=== PATIENT | male | born 1930 | race Caucasian/White ===

== ENCOUNTER 2018-01-06 23:36 | Inpatient (IN) ==
[2018-01-07] MEDS ORDERED: methylPREDNISolone SOD SUC 125 MG/2 ML VIAL IV STA (00:27)
[2018-01-07] MEDS ORDERED: PIPERACILLIN/TAZOBACTAM 3,375 MG in SODIUM CHLORIDE 0.9% 100 ML IV STA (00:27)
[2018-01-07] MEDS ORDERED: ALBUTEROL/IPRATROPIUM 3 ML NEB RESP TX STA (00:27)
[2018-01-07 01:09] LABS: ABG Base Excess 0.4 MMOL/L (-2.5-2.5); ABG HCO3 25.3 MMOL/L (20-26); ABG Oxygen Saturation 97.4 % (95-100); ABG PCO2 41.8 MM HG (35-48); ABG PO2 103.8 MM HG (80-95); ABG TCO2 26.6 MMOL/L (23-27); Allen Test Positive
[2018-01-07 01:36] LABS: Basophils % 0.2 % (0.0-0.8); Eosinophils % 0.4 % (0.00-10.9); Hemoglobin 14.2 GM/DL (14.0-18.0); Immature Granulocytes Absolute 0.08 #; Lymphocytes # 1.1 10*3/uL (1.4-4.0); Lymphocytes % 13.7 % (21.2-54.2); Mean Corpuscular HGB Conc 32.3 GM/DL (32-36); Mean Corpuscular Hemoglobin 30 PG (27-34); Mean Corpuscular Volume 92.2 FL (87-102); Mean Platelet Volume 9.9 FL (9.6-12.0); Monocytes # 0.8 10*3/uL (0.11-0.8); Monocytes % 9.3 % (1.7-12.7); Neutrophils # 6.2 10*3/uL (1.4-7.4); Neutrophils % 75.4 % (38.7-73.9); Platelet Count 147 T/CUMM (130-400); Red Blood Count 4.77 MC/CUMM (3.8-5.5); Red Cell Distribution Width 14.2 % (9.3-17.3); White Blood Count 8.2 T/CUMM (4-12)
[2018-01-07 01:51] LABS: PT Patient Result 10.9 SECS
[2018-01-07 02:00] LABS: Albumin 3.3 G/DL (3.4-5.0); Bilirubin,Total 0.5 MG/DL (0.2-1.0); Calcium 8.6 MG/DL (8.5-10.1); Osmolality,Calculated 289.1 MOS/KG (273-304); Potassium 4.7 MMOL/L (3.5-5.1); Troponin I Only 0.031 NG/ML (0.00-0.045)
[2018-01-07] MEDS ORDERED: methylPREDNISolone SOD SUC 125 MG/2 ML VIAL ONE (02:44)
[2018-01-07] MEDS ORDERED: PIPERACILLIN/TAZOBACTAM 3,375 MG VIAL IV ONE (02:44)
[2018-01-07] MEDS ORDERED: SODIUM CHLORIDE 0.9% 100 ML IV ONE (02:45)
[2018-01-07 03:02] LABS: Lactic Acid 1.8 MMOL/L (0.4-2.0)
[2018-01-07] MEDS ORDERED: ALBUTEROL/IPRATROPIUM 3 ML NEB RESP TX PRN (03:49)
[2018-01-07] MEDS ORDERED: ONDANSETRON 4 MG/2 ML VIAL IV PRN (03:49)
[2018-01-07] MEDS ORDERED: MORPHINE 2 MG/1 ML SYRINGE IV PRN (03:49)
[2018-01-07] MEDS: ENOXAPARIN 40 MG/0.4 ML SYRINGE SUBCUT SCH ×2 (04:50→09:19)
[2018-01-07 06:48] LABS: Apearance,Urine Slightly Hazy (Clear); Glucose,Urine (UA) Negative (Negative); Ketones,Urine Negative (Negative); Nitrite,Urine Negative (Negative); Protein,Urine 100 MG/DL; Urine Color Yellow (Yellow)
[2018-01-07 06:49] LABS: Bacteria,Urine Occasional /HPF (Few); Bilirubin,Urine Negative (Negative); Blood, Urine Negative (Negative); Hyaline Casts,Urine 10 /LPF (0-3); Mucus,Urine Occasional /LPF (Occasional); RBC,Urine 1 /HPF (0-4); Urine Urobilinogen < 2.0 EU/DL (0.2-1.0); WBC,Urine 1 /HPF (0-6)
[2018-01-07] MEDS: SODIUM CHLORIDE 0.45% 1,000 ML IV SCH (07:07)
[2018-01-07] MEDS ORDERED: ENOXAPARIN 40 MG/0.4 ML SYRINGE ONE (09:11)
[2018-01-07] MEDS ORDERED: CLINDAMYCIN INJ 50 ML IV ONE (09:11)
[2018-01-07] MEDS: ALBUTEROL/IPRATROPIUM 3 ML NEB RESP TX SCH ×3 (09:15→19:44)
[2018-01-07] MEDS: CLINDAMYCIN INJ 600 MG in PREMIX 1 EACH IV SCH ×2 (09:15→16:26)
[2018-01-07] MEDS ORDERED: PANTOPRAZOLE 40 MG VIAL IV ONE (09:44)
[2018-01-07] MEDS: PANTOPRAZOLE 40 MG VIAL IV SCH (09:50)
[2018-01-08] MEDS: ALBUTEROL/IPRATROPIUM 3 ML NEB RESP TX SCH ×4 (00:21→19:15)
[2018-01-08] MEDS: CLINDAMYCIN INJ 600 MG in PREMIX 1 EACH IV SCH ×3 (00:38→16:40)
[2018-01-08] MEDS: SODIUM CHLORIDE 0.45% 1,000 ML IV SCH ×4 (00:39→21:04)
[2018-01-08] MEDS: PANTOPRAZOLE 40 MG VIAL IV SCH (09:55)
[2018-01-08 16:31] LABS: Troponin I Only < 0.015 NG/ML (0.00-0.045)
[2018-01-08] MEDS: MEMANTINE 5 MG TABLET PO SCH ×2 (16:40→20:21)
[2018-01-08] MEDS: CARBIDOPA/LEVODOPA 25-100 MG TABLET PO SCH ×2 (16:40→20:21)
[2018-01-09] MEDS: CLINDAMYCIN INJ 600 MG in PREMIX 1 EACH IV SCH ×2 (00:05→09:22)
[2018-01-09] MEDS: ALBUTEROL/IPRATROPIUM 3 ML NEB RESP TX SCH ×2 (00:37→08:12)
[2018-01-09] MEDS ORDERED: ASPIRIN EC 81 MG TABLET PO SCH (09:00)
[2018-01-09] MEDS ORDERED: amLODIPine 5 MG TABLET PO SCH (09:00)
[2018-01-09] MEDS ORDERED: TAMSULOSIN 0.4 MG CAPSULE PO SCH (09:00)
[2018-01-09] MEDS ORDERED: SERTRALINE 100 MG TABLET PO SCH (09:00)
[2018-01-09] MEDS ORDERED: DONEPEZIL 5 MG TABLET PO SCH (09:00)
[2018-01-09] MEDS: MEMANTINE 5 MG TABLET PO SCH (09:14)
[2018-01-09] MEDS: CARBIDOPA/LEVODOPA 25-100 MG TABLET PO SCH (09:15)
[2018-01-09] MEDS: ENOXAPARIN 40 MG/0.4 ML SYRINGE SUBCUT SCH (09:20)
[2018-01-09] MEDS ORDERED: PROPOFOL 200 MG/20 ML VIAL IV ONE (12:34)
[2018-01-09] MEDS ORDERED: LIDOCAINE 2% 5 ML VIAL ONE (12:34)
[2018-01-09 13:33] VITALS: BP 180/82
[2018-01-09] MEDS ORDERED: PANTOPRAZOLE 40 MG TABLET PO SCH (16:30)
== END 2018-01-09 14:32 | disposition home health service (06) | DRG 178 ==
LOC: EDUNIT# → EDBD → N.ED 23:36 → N.EDINP 01-07 02:45 → N.TELEN 01-07 12:41
PROVIDERS: ADMIT Hospitalist; ATTEND Hospitalist

== ENCOUNTER 2018-09-15 15:50 | Inpatient (IN) ==
[2018-09-15] MEDS ORDERED: SODIUM CHLORIDE 0.9% 1,000 ML IV STA (16:39)
[2018-09-15 17:01] LABS: Basophils % 0.1 % (0.0-0.8); Eosinophils % 0.3 % (0.00-10.9); Hematocrit 45.6 VOL% (42.0-52.0); Hemoglobin 14.8 GM/DL (14.0-18.0); Immature Granulocytes % 0.5 %; Immature Granulocytes Absolute 0.05 #; Lymphocytes # 0.8 10*3/uL (1.4-4.0); Lymphocytes % 8.3 % (21.2-54.2); Mean Corpuscular HGB Conc 32.5 GM/DL (32-36); Mean Corpuscular Hemoglobin 30 PG (27-34); Mean Corpuscular Volume 91.9 FL (87-102); Mean Platelet Volume 9.8 FL (9.6-12.0); Monocytes % 10.5 % (1.7-12.7); Neutrophils # 7.5 10*3/uL (1.4-7.4); Neutrophils % 80.3 % (38.7-73.9); Platelet Count 134 T/CUMM (130-400); Red Blood Count 4.96 MC/CUMM (3.8-5.5); Red Cell Distribution Width 14.4 % (9.3-17.3); White Blood Count 9.3 T/CUMM (4-12)
[2018-09-15 17:22] LABS: Albumin 3.4 G/DL (3.4-5.0); Bilirubin,Total 0.8 MG/DL (0.2-1.0); Osmolality,Calculated 284.5 MOS/KG (273-304); Potassium 5.5 MMOL/L (3.5-5.1)
[2018-09-15 17:24] LABS: Lactic Acid 1.1 MMOL/L (0.4-2.0)
[2018-09-15 17:27] LABS: Apearance,Urine Slightly Hazy (Clear); Bilirubin,Urine Negative (Negative); Blood, Urine Negative (Negative); Glucose,Urine (UA) Negative (Negative); Ketones,Urine Negative (Negative); Mucus,Urine Occasional /LPF (Occasional); Nitrite,Urine Negative (Negative); Protein,Urine Negative; RBC,Urine 2 /HPF (0-4); Urine Color Yellow (Yellow); Urine Specific Gravity 1.015 (1.001-1.035); Urine Urobilinogen < 2.0 EU/DL (0.2-1.0); WBC,Urine 1 /HPF (0-6)
[2018-09-15] MEDS ORDERED: ALBUTEROL 2.5 MG/3 ML NEB RESP TX PRN (19:53)
[2018-09-15] MEDS ORDERED: ONDANSETRON 4 MG/2 ML VIAL IV PRN (20:15)
[2018-09-15] MEDS ORDERED: LEVOFLOXACIN INJ 500 MG in PREMIX 1 EACH IV SCH (20:30)
[2018-09-15] MEDS: cefTRIAXone 1,000 MG in SYRINGE 1 EACH IV SCH (21:58)
[2018-09-15] MEDS: SODIUM CHLORIDE 0.9% 1,000 ML IV SCH (22:00)
[2018-09-15] MEDS: MEMANTINE 5 MG TABLET PO SCH (22:00)
[2018-09-15] MEDS: CARBIDOPA/LEVODOPA 25-100 MG TABLET PO SCH (22:00)
[2018-09-16 06:18] LABS: Basophils % 0.2 % (0.0-0.8); Eosinophils % 0.2 % (0.00-10.9); Hematocrit 41.3 VOL% (42.0-52.0); Immature Granulocytes % 0.4 %; Immature Granulocytes Absolute 0.04 #; Lymphocytes # 0.8 10*3/uL (1.4-4.0); Lymphocytes % 7.3 % (21.2-54.2); Mean Corpuscular HGB Conc 31.5 GM/DL (32-36); Mean Corpuscular Hemoglobin 29 PG (27-34); Mean Corpuscular Volume 92.8 FL (87-102); Mean Platelet Volume 10.1 FL (9.6-12.0); Monocytes # 1.4 10*3/uL (0.11-0.8); Monocytes % 13.4 % (1.7-12.7); Neutrophils # 8.4 10*3/uL (1.4-7.4); Neutrophils % 78.5 % (38.7-73.9); Platelet Count 124 T/CUMM (130-400); Red Blood Count 4.45 MC/CUMM (3.8-5.5); Red Cell Distribution Width 14.6 % (9.3-17.3); White Blood Count 10.7 T/CUMM (4-12)
[2018-09-16 06:39] LABS: Calcium 8.2 MG/DL (8.5-10.1); Osmolality,Calculated 288.1 MOS/KG (273-304); Potassium 4.5 MMOL/L (3.5-5.1)
[2018-09-16] MEDS: SODIUM CHLORIDE 0.9% 1,000 ML IV SCH (14:00)
[2018-09-16] MEDS: TAMSULOSIN 0.4 MG CAPSULE PO SCH (14:53)
[2018-09-16] MEDS: CARBIDOPA/LEVODOPA 25-100 MG TABLET PO SCH ×2 (14:53→21:47)
[2018-09-16] MEDS: MEMANTINE 5 MG TABLET PO SCH ×2 (14:53→21:47)
[2018-09-16] MEDS: SERTRALINE 100 MG TABLET PO SCH (14:54)
[2018-09-16] MEDS: amLODIPine 5 MG TABLET PO SCH (14:54)
[2018-09-16] MEDS: ASPIRIN EC 81 MG TABLET PO SCH (14:54)
[2018-09-16] MEDS: ENOXAPARIN 40 MG/0.4 ML SYRINGE SUBCUT SCH (14:54)
[2018-09-16] MEDS: cefTRIAXone 1,000 MG in SYRINGE 1 EACH IV SCH (21:47)
[2018-09-17] MEDS: SODIUM CHLORIDE 0.9% 1,000 ML IV SCH (04:16)
[2018-09-17 05:42] LABS: Calcium 7.8 MG/DL (8.5-10.1); Osmolality,Calculated 293.8 MOS/KG (273-304)
[2018-09-17] MEDS: SERTRALINE 100 MG TABLET PO SCH (09:05)
[2018-09-17] MEDS: amLODIPine 5 MG TABLET PO SCH (09:05)
[2018-09-17] MEDS: CARBIDOPA/LEVODOPA 25-100 MG TABLET PO SCH (09:05)
[2018-09-17] MEDS: ASPIRIN EC 81 MG TABLET PO SCH (09:05)
[2018-09-17] MEDS: MEMANTINE 5 MG TABLET PO SCH (09:05)
[2018-09-17] MEDS: TAMSULOSIN 0.4 MG CAPSULE PO SCH (09:05)
[2018-09-17] MEDS: ENOXAPARIN 40 MG/0.4 ML SYRINGE SUBCUT SCH (09:07)
[2018-09-17 11:52] VITALS: BP 154/80
== END 2018-09-17 12:07 | disposition home health service (06) | DRG 641 ==
LOC: EDUNIT# → EDBD → N.ED 15:50 → N.EDINP 20:15 → N.2E 21:12
PROVIDERS: ADMIT Family Medicine; ATTEND Family Medicine

== ENCOUNTER 2019-01-25 10:22 | Inpatient (IN) ==
[2019-01-25 11:18] LABS: Basophils % 0.3 % (0.0-0.8); Eosinophils # 0.1 10*3/uL (0.0-0.87); Eosinophils % 1.7 % (0.00-10.9); Hematocrit 44.3 VOL% (42.0-52.0); Hemoglobin 14.4 GM/DL (14.0-18.0); Immature Granulocytes % 1.2 %; Immature Granulocytes Absolute 0.07 #; Lymphocytes # 0.8 10*3/uL (1.4-4.0); Mean Corpuscular HGB Conc 32.5 GM/DL (32-36); Mean Corpuscular Hemoglobin 30 PG (27-34); Mean Corpuscular Volume 92.3 FL (87-102); Mean Platelet Volume 9.3 FL (9.6-12.0); Monocytes # 0.6 10*3/uL (0.11-0.8); Monocytes % 10.4 % (1.7-12.7); Neutrophils # 4.3 10*3/uL (1.4-7.4); Neutrophils % 73.4 % (38.7-73.9); Platelet Count 114 T/CUMM (130-400); Red Cell Distribution Width 14.2 % (9.3-17.3); White Blood Count 5.9 T/CUMM (4-12)
[2019-01-25 11:35] LABS: Albumin 3.1 G/DL (3.4-5.0); Bilirubin,Total 0.9 MG/DL (0.2-1.0); Calcium 8.5 MG/DL (8.5-10.1); Osmolality,Calculated 287.4 MOS/KG (273-304); Total Protein 7.2 G/DL (6.4-8.3)
[2019-01-25 12:08] LABS: Amorphous Crystals,Urine Occasional /HPF (Few); Apearance,Urine CLEAR (Clear); Bilirubin,Urine Negative (Negative); Blood, Urine Small mg/dL (Negative); Glucose,Urine (UA) Negative (Negative); Ketones,Urine Negative (Negative); Mucus,Urine Occasional /LPF (Occasional); Nitrite,Urine Negative (Negative); Protein,Urine 30 MG/DL; RBC,Urine 13 /HPF (0-4); Urine Color Yellow (Yellow); Urine Urobilinogen < 2.0 EU/DL (0.2-1.0); WBC,Urine <1 /HPF (0-6)
[2019-01-25] MEDS ORDERED: DOCUSATE SODIUM 100 MG CAPSULE PO PRN (14:47)
[2019-01-25] MEDS ORDERED: SODIUM CHLORIDE 0.9% 1,000 ML IV SCH (15:00)
[2019-01-25] MEDS ORDERED: hydrALAZINE 20 MG/1 ML VIAL IV STA (15:26)
[2019-01-25] MEDS ORDERED: hydrALAZINE 20 MG/1 ML VIAL ONE (15:27)
[2019-01-25] MEDS ORDERED: NIFEdipine 10 MG CAPSULE PO PRN (18:20)
[2019-01-25] MEDS: MEMANTINE 10 MG TABLET PO SCH (21:02)
[2019-01-25] MEDS: hydrALAZINE 20 MG/1 ML VIAL IV PRN (21:02)
[2019-01-25] MEDS ORDERED: MORPHINE 4 MG/1 ML VIAL ONE (21:44)
[2019-01-25] MEDS: ONDANSETRON 4 MG/2 ML VIAL IV PRN (21:46)
[2019-01-25] MEDS: MORPHINE 4 MG/1 ML VIAL IV PRN (21:47)
[2019-01-26] MEDS: hydrALAZINE 20 MG/1 ML VIAL IV PRN (04:30)
[2019-01-26] MEDS: ONDANSETRON 4 MG/2 ML VIAL IV PRN (05:19)
[2019-01-26] MEDS: MORPHINE 4 MG/1 ML VIAL IV PRN (05:21)
[2019-01-26 05:31] LABS: Basophils % 0.2 % (0.0-0.8); Eosinophils # 0.1 10*3/uL (0.0-0.87); Hematocrit 42.5 VOL% (42.0-52.0); Immature Granulocytes Absolute 0.06 #; Lymphocytes # 0.7 10*3/uL (1.4-4.0); Mean Corpuscular HGB Conc 32.9 GM/DL (32-36); Mean Corpuscular Hemoglobin 30 PG (27-34); Mean Corpuscular Volume 91.8 FL (87-102); Mean Platelet Volume 9.9 FL (9.6-12.0); Monocytes # 0.8 10*3/uL (0.11-0.8); Monocytes % 12.9 % (1.7-12.7); Neutrophils # 4.4 10*3/uL (1.4-7.4); Neutrophils % 72.9 % (38.7-73.9); Platelet Count 124 T/CUMM (130-400); Red Blood Count 4.63 MC/CUMM (3.8-5.5); Red Cell Distribution Width 14.5 % (9.3-17.3)
[2019-01-26 05:56] LABS: Albumin 3.1 G/DL (3.4-5.0); Bilirubin,Total 1.2 MG/DL (0.2-1.0); Calcium 8.6 MG/DL (8.5-10.1); Osmolality,Calculated 291.1 MOS/KG (273-304); Total Protein 7.1 G/DL (6.4-8.3)
[2019-01-26] MEDS: ASPIRIN EC 81 MG TABLET PO SCH (10:00)
[2019-01-26] MEDS: SERTRALINE 100 MG TABLET PO SCH (10:00)
[2019-01-26] MEDS: amLODIPine 5 MG TABLET PO SCH (10:00)
[2019-01-26] MEDS: CARBIDOPA/LEVODOPA 25-100 MG TABLET PO SCH (10:00)
[2019-01-26] MEDS: MEMANTINE 10 MG TABLET PO SCH ×2 (10:00→21:05)
[2019-01-26] MEDS: PANTOPRAZOLE 40 MG TABLET PO SCH (10:00)
[2019-01-26] MEDS ORDERED: BUPIVACAINE 0.5% 10 ML VIAL MISC INJ ONE (11:02)
[2019-01-26] MEDS ORDERED: BETAMETH SODIUM PHOS/ACETATE 30 MG/5 ML VIAL INTRAARTIC ONE (11:08)
[2019-01-26] MEDS ORDERED: BUPIVACAINE 0.5% 50 ML VIAL MISC INJ ONE (12:30)
[2019-01-26] MEDS: SILVER SULFADIAZINE 1% CREAM 25 GM TUBE TOP SCH (13:23)
[2019-01-26] MEDS ORDERED: POLYETHYLENE GLYCOL POWDER 17 GM PACK PO SCH (21:00)
[2019-01-27 05:45] LABS: Basophils % 0.2 % (0.0-0.8); Hematocrit 43.2 VOL% (42.0-52.0); Immature Granulocytes % 1.3 %; Immature Granulocytes Absolute 0.06 #; Lymphocytes # 0.5 10*3/uL (1.4-4.0); Lymphocytes % 9.7 % (21.2-54.2); Mean Corpuscular HGB Conc 32.4 GM/DL (32-36); Mean Corpuscular Hemoglobin 31 PG (27-34); Mean Corpuscular Volume 94.1 FL (87-102); Mean Platelet Volume 9.8 FL (9.6-12.0); Monocytes # 0.1 10*3/uL (0.11-0.8); Monocytes % 1.3 % (1.7-12.7); Neutrophils # 4.2 10*3/uL (1.4-7.4); Neutrophils % 87.5 % (38.7-73.9); Platelet Count 127 T/CUMM (130-400); Red Blood Count 4.59 MC/CUMM (3.8-5.5); Red Cell Distribution Width 14.2 % (9.3-17.3); White Blood Count 4.7 T/CUMM (4-12)
[2019-01-27 06:16] LABS: Albumin 3.1 G/DL (3.4-5.0); Bilirubin,Total 0.8 MG/DL (0.2-1.0); Calcium 8.9 MG/DL (8.5-10.1); Osmolality,Calculated 290.4 MOS/KG (273-304); Potassium 4.5 MMOL/L (3.5-5.1); Total Protein 7.2 G/DL (6.4-8.3)
[2019-01-27] MEDS ORDERED: LIDOCAINE 2% 5 ML VIAL ONE (09:00)
[2019-01-27] MEDS ORDERED: PROPOFOL 200 MG/20 ML VIAL IV ONE (09:00)
[2019-01-27] MEDS: CARBIDOPA/LEVODOPA 25-100 MG TABLET PO SCH (10:50)
[2019-01-27] MEDS: POLYETHYLENE GLYCOL POWDER 17 GM PACK PO SCH ×3 (10:50→21:45)
[2019-01-27] MEDS: ASPIRIN EC 81 MG TABLET PO SCH (10:50)
[2019-01-27] MEDS: PANTOPRAZOLE 40 MG TABLET PO SCH (10:50)
[2019-01-27] MEDS: MEMANTINE 10 MG TABLET PO SCH ×2 (10:51→21:46)
[2019-01-27] MEDS: SERTRALINE 100 MG TABLET PO SCH (10:51)
[2019-01-27] MEDS: SILVER SULFADIAZINE 1% CREAM 25 GM TUBE TOP SCH (10:51)
[2019-01-27] MEDS: amLODIPine 5 MG TABLET PO SCH (10:51)
[2019-01-28 05:14] LABS: Bilirubin,Total 1.1 MG/DL (0.2-1.0); Calcium 8.3 MG/DL (8.5-10.1); Osmolality,Calculated 286.8 MOS/KG (273-304); Potassium 5.3 MMOL/L (3.5-5.1)
[2019-01-28 06:15] LABS: Basophils % 0.1 % (0.0-0.8); Hematocrit 40.7 VOL% (42.0-52.0); Hemoglobin 13.3 GM/DL (14.0-18.0); Immature Granulocytes Absolute 0.08 #; Lymphocytes # 0.8 10*3/uL (1.4-4.0); Lymphocytes % 9.9 % (21.2-54.2); Mean Corpuscular HGB Conc 32.7 GM/DL (32-36); Mean Corpuscular Hemoglobin 30 PG (27-34); Mean Corpuscular Volume 92.5 FL (87-102); Mean Platelet Volume 9.8 FL (9.6-12.0); Monocytes # 0.6 10*3/uL (0.11-0.8); Monocytes % 7.1 % (1.7-12.7); Neutrophils # 6.6 10*3/uL (1.4-7.4); Neutrophils % 81.9 % (38.7-73.9); Platelet Count 147 T/CUMM (130-400); Red Cell Distribution Width 13.9 % (9.3-17.3)
[2019-01-28 07:46] VITALS: BP 151/116
[2019-01-28] MEDS: POLYETHYLENE GLYCOL POWDER 17 GM PACK PO SCH (08:51)
[2019-01-28] MEDS: PANTOPRAZOLE 40 MG TABLET PO SCH (08:51)
[2019-01-28] MEDS: ASPIRIN EC 81 MG TABLET PO SCH (08:51)
[2019-01-28] MEDS: CARBIDOPA/LEVODOPA 25-100 MG TABLET PO SCH (08:52)
[2019-01-28] MEDS: SILVER SULFADIAZINE 1% CREAM 25 GM TUBE TOP SCH (08:52)
[2019-01-28] MEDS: amLODIPine 5 MG TABLET PO SCH (08:52)
[2019-01-28] MEDS: MEMANTINE 10 MG TABLET PO SCH (08:52)
[2019-01-28] MEDS: SERTRALINE 100 MG TABLET PO SCH (08:52)
== END 2019-01-28 12:00 | disposition home health service (06) | DRG 552 ==
LOC: EDBD → EDUNIT# → N.ED 10:22 → N.EDINP 14:47 → N.3E 16:08
PROVIDERS: ADMIT Internal Medicine; ATTEND Internal Medicine